=== PATIENT | female | born 1950 ===

== ENCOUNTER 2017-05-19 12:37 | Outpatient (CLI) | payer MEDICARE | END 2017-05-19 12:38 | disposition home or self-care (01) | LOC: LABHHL 12:37 | PROVIDERS: ATTEND Surgery | DX: N63.20 Unspecified lump in the left breast, unspecified quadrant (principal) | CPT/HCPCS: 88305 ==

== ENCOUNTER 2017-05-24 17:04 | Emergency (ER) | payer MEDICARE, BC ==
[2017-05-24] MEDS ORDERED: NORCO 5/325 PO ONE (18:16)
--- NOTE | 2017-05-24 18:27 | Emergency Department Report ---
HPI - General Chief Complaint: Headache Time Seen by Provider: 05/24/17 18:03 - HPI HPI: Room 9 The patient is a 66-year-old female presenting with a chief complaint bleeding fistula. Patient was at hemodialysis today and states they're unable to get the bleeding stopped from her fistula. The dressing was placed and patient was sent to the ED. The patient complains of headache associated headache normally after receiving hemodialysis and this headache is no different. The patient gives her pain a score of 7/10 Location: Head, right extremity fistula Duration: [See above] Quality: Headache Severity: 7/10 Modifying factors: [see above] Context: [see above] Mode of transportation: [not driving] ED Past Medical Hx - Past Medical History Previous Medical History?: Yes Hx Hypertension: Yes Hx Diabetes: Yes Hx Renal Disease: Yes (MWF) Hx COPD: Yes (3 L home O2 prn) Hx Dementia: Yes Additional medical history: Anemia - Surgical History Past Surgical History?: Yes Hx Pacemaker: Yes Additional Surgical History: AV fistula - Family History Family history: no significant - Social History Smoking Status: Former Smoker (none 5 years) Substance Use Type: None ED Review of Systems ROS: Stated complaint: PORT BLEEDING RT ARM Other details as noted in HPI Neurological: headache Hematological/Lymphatic: easy bleeding (bleeding from extremity fistula) Physical Exam - Physical Exam Vital Signs: Vital Signs 05/24/17 17:45 Pulse Rate 63 Respiratory 16 Rate Blood Pressure 147/52 O2 Sat by Pulse 91 Oximetry Physical Exam: GENERAL: The patient is well-developed well-nourished female lying on stretcher not appearing to be in acute distress. [] HEENT: Normocephalic. Atraumatic. Extraocular motions are intact. Patient has moist mucous membranes. NECK: Supple. Trachea midline CHEST/LUNGS: Clear to auscultation. There is no respiratory distress noted. HEART/CARDIOVASCULAR: Regular. There is no tachycardia. There is no gallop rub or murmur. ABDOMEN: Abdomen is soft, nontender. Patient has normal bowel sounds. There is no abdominal distention. SKIN: There is no rash. There is no edema. There is no diaphoresis. NEURO: The patient is awake, alert, and oriented. The patient is cooperative. The patient has no focal neurologic deficits. The patient has normal speech. Cranial nerves II through XII grossly intact, no drift MUSCULOSKELETAL: There is no evidence of acute injury. ED Course Vital Signs 05/24/17 17:45 Pulse Rate 63 Respiratory 16 Rate Blood Pressure 147/52 O2 Sat by Pulse 91 Oximetry - Reevaluation(s) Reevaluation #1: 05/24/17 20:54 Fistula dressing removed after administration of DDAVP. Patient is hemostatic. No active bleeding. Helistat and dressing placed over fistula and patient advised not to remove it for 24 hours. ED Medical Decision Making - Lab Data Result diagrams: 05/24/17 18:24 05/24/17 18:24 Laboratory Tests 05/24/17 05/24/17 05/24/17 18:24 18:24 18:24 WBC 8.1 RBC 2.48 L Hgb 8.2 L Hct 25.1 L MCV 101 H MCH 33 H MCHC 33 RDW 18.0 H Plt Count 382 Lymph % (Auto) 7.[address] [place] % (Auto) 12.6 H Eos % (Auto) 4.9 H Baso % (Auto) 0.9 Lymph # 0.[address] [place] # 1.0 H Eos # 0.4 Baso # 0.1 Seg Neutrophils % 74.2 H Seg Neutrophils # 6.0 PT 14.4 INR 1.06 APTT 34.3 Sodium 136 L Potassium 4.2 Chloride 96.0 L Carbon Dioxide 24 Anion Gap 20 BUN 24 H Creatinine 3.7 H Estimated GFR 12 BUN/Creatinine Ratio 6 Glucose 147 H Calcium 8.7 - Differential Diagnosis coagulopathy, platelet dysfunction, headache Critical care attestation.: If time is entered above; I have spent that time in minutes in the direct care of this critically ill patient, excluding procedure time. ED Disposition Clinical Impression: Hemorrhage of arteriovenous fistula, Anemia, COPD (chronic obstructive pulmonary disease) Disposition: - TO HOME OR SELFCARE Is pt being admited?: No Does the pt Need Aspirin: No Condition: Stable Instructions: Chronic Obstructive Pulmonary Disease (ED) Additional Instructions: Return to the emergency department immediately should you develop worsening symptoms, fever, inability to tolerate food or liquid or any other concerns. Referrals: PRIMARY CARE, [Primary Care Provider] - 3-5 Days Time of Disposition: 20:55
[2017-05-24 18:45] LABS: Basophils # (Auto) 0.1 K/mm3 (0.0-0.1); Basophils % (Auto) 0.9 % (0.0-1.8); Eosinophils # (Auto) 0.4 K/mm3 (0.0-0.4); Eosinophils % (Auto) 4.9 % (0.0-4.3); Hematocrit 25.1 % (30.3-42.9); Hemoglobin 8.2 gm/dl (10.1-14.3); Lymphocytes # (Auto) 0.6 K/mm3 (1.2-5.4); Lymphocytes % (Auto) 7.4 % (13.4-35.0); Mean Corpuscular HGB Conc 33 % (30-34); Mean Corpuscular Hemoglobin 33 pg (28-32); Mean Corpuscular Volume 101 fl (79-97); Monocytes % (Auto) 12.6 % (0.0-7.3); Platelet Count 382 K/mm3 (140-440); Red Blood Count 2.48 M/mm3 (3.65-5.03)
[2017-05-24 18:49] LABS: INR 1.06 (0.87-1.13)
[2017-05-24 18:50] LABS: Partial Thromboplastin Time 34.3 Sec. (24.2-36.6)
[2017-05-24 18:56] LABS: Calcium 8.7 mg/dL (8.4-10.2)
[2017-05-24] MEDS ORDERED: DDAVP IV ONE (19:00)
[2017-05-24] MEDS ORDERED: NACL 0.9% IV ONE (19:00)
[2017-05-24] MEDS ORDERED: SUBLIMAZE IV ONE ×2 (19:56→21:00)
[2017-05-24] MEDS ORDERED: ZOFRAN IV ONE (19:56)
[2017-05-24 21:53] VITALS: BP 167/63
== END 2017-05-24 21:15 | disposition home or self-care (01) ==
LOC: ED 17:04
DX: T82.838A Hemorrhage due to vascular prosthetic devices, implants and grafts, initial encounter (principal); J44.9 Chronic obstructive pulmonary disease, unspecified; D64.9 Anemia, unspecified; I10 Essential (primary) hypertension; E11.9 Type 2 diabetes mellitus without complications; Z87.891 Personal history of nicotine dependence
CPT/HCPCS: 36415; 80048; 85025; 85610; 85730; 96365; 96375; 99283; J2405; J2597; J3010

== ENCOUNTER 2017-06-29 14:10 | Outpatient (CLI) | payer MEDICARE ==
--- NOTE | 2017-06-30 08:34 | Mammography Report ---
BILATERAL DIGITAL DIAGNOSTIC MAMMOGRAM with CAD: 06/29/17 14:10:00 CLINICAL: Left wrist swelling and erythema. She recently had a skin punch biopsy of the left breast which was negative for tumor. End-stage renal disease on dialysis. COMPARISON:None. FINDINGS: The breasts are heterogeneously dense, which may obscure small masses. Extensive skin thickening of the left breast which is relatively uniform. Minimal skin thickening of the right breast.No mass, architectural distortion or suspicious calcifications. IMPRESSION: Nonspecific probably benign asymmetric skin thickening of the left breast with benign lymphedema prime consideration. However, recommend global left breast ultrasound for a more confident exclusion of tumor. BI-RADS CATEGORY: 0--Needs Additional Imaging RECOMMENDATION: Global left breast ultrasound. ACR BI-RADS MAMMOGRAPHIC CODES: 0 = Needs additional imaging evaluation; 1 = Negative; 2 = Benign; 3 = Probably benign; 4 = Suspicious; 5 = Malignant; 6 = Known biopsy-proven malignancy COMMENT: 1. Dense breast tissue, i.e., adenosis, fibrocystic changes, etc., may obscure an underlying neoplasm. 2. Approximately 10% of cancers are not detected with mammography. 3. A negative mammography report should not delay biopsy if a clinically suspicious mass is present. COMMENT: Patient follow-up letters are generated by our [employer] application.
== END 2017-06-29 14:11 | disposition home or self-care (01) ==
LOC: SPVWC 14:10
PROVIDERS: ATTEND Surgery
DX: N64.9 Disorder of breast, unspecified (principal); N18.6 End stage renal disease; Z99.2 Dependence on renal dialysis
CPT/HCPCS: 77066